=== PATIENT | male | born 1980 | race Caucasian/White ===

== ENCOUNTER 2016-08-09 20:00 | Day surgery (SDC) | payer OTHER ==
[~2016-08-09] VITALS: Ht 165.1 cm; Wt 78.5 kg
[2016-08-09] MEDS ORDERED: ONDANSETRON 4MG/2ML VIAL (J2405) As Ordered ONE (21:33)
[2016-08-09] MEDS ORDERED: MORPHINE 4 MG/ML 1ML SYRINGE As Ordered ONE (21:33)
[2016-08-09 21:57] LABS: BASO # 0.2 K/mm3 (0.0-0.2); BASO % 1.6 % (0.0-1.0); EOS # 0.4 K/mm3 (0.0-0.50); EOS % 2.6 % (0.0-3.0); LARGE UNSTAINED CELL # 0.2 K/mm3 (0.0-0.4); LARGE UNSTAINED CELL % 1.2 % (0.0-4.0); LYMPH # 1.9 K/mm3 (1.5-4.5); LYMPH % 12.8 % (24.0-44.0); MEAN CORPUSCULAR HEMOGLOBIN 30.6 pg (27.0-33.0); MEAN CORPUSCULAR HGB CONC 34.7 g/dl (32.0-36.5); MEAN CORPUSCULAR VOLUME 88.1 fl (80.0-96.0); MONO # 0.7 K/mm3 (0.0-0.8); MONO % 4.8 % (0.0-5.0); NEUTROPHILS # 10.7 K/mm3 (1.8-7.7); PLATELET COUNT, AUTOMATED 211 k/mm3 (150-450); RED CELL DISTRIBUTION WIDTH 13.1 % (11.5-14.5); WHITE BLOOD COUNT 13.8 K/mm3 (4.0-10.0)
[2016-08-09 22:25] LABS: ALBUMIN 4.3 GM/DL (3.2-5.2); ALBUMIN/GLOBULIN RATIO 1.54 (1.00-1.93); ALKALINE PHOSPHATASE 106 U/L (45-117); ALT/SGPT 50 U/L (12-78); ANION GAP 9 MEQ/L (8-16); AST/SGOT 19 U/L (15-37); BILIRUBIN,DIRECT 0.1 MG/DL (0.0-0.2); BILIRUBIN,TOTAL 0.4 MG/DL (0.2-1.0); BLOOD UREA NITROGEN 15 MG/DL (7-18); CARBON DIOXIDE LEVEL 28 MEQ/L (21-32); CHLORIDE LEVEL 104 MEQ/L (98-107); CREATININE FOR GFR 1.09 MG/DL (0.70-1.30); GLOMERULAR FILTRATION RATE > 60.0 (>60); GLUCOSE, FASTING 92 MG/DL (70-105); POTASSIUM SERUM 4.1 MEQ/L (3.5-5.1); SODIUM LEVEL 141 MEQ/L (136-145); TOTAL PROTEIN 7.1 GM/DL (6.4-8.2)
[2016-08-09] MEDS ORDERED: ISOVUE-370 76% 100ML VIAL (Q9967) As Ordered ONE (22:30)
[2016-08-10] VITALS (9 sets, daily range): BP systolic 116–128; BP diastolic 57–76
--- NOTE | 2016-08-10 00:50 | REPUSA ---
CLINICAL HISTORY: Abdominal pain. TECHNIQUE: Multiple axial, sagittal and coronal CT images were obtained through the abdomen and pelvi s after administration of intravenous contrast material. COMMENTS: Enlarged appendix measuring 1.3 cm. Impacted appendicolith in the base of the appendix. Thickening an d enhancement of the wall of the appendix with surrounding fat stranding. Fluid filled small bowels. The liver is mildly enlarged with decreased attenuation without mass or defect. There is no intra or extrahepatic biliary ductal dilatation. The spleen is normal. The gallbladder is within normal limits . The pancreas is of normal contour and attenuation characteristics. There is no evidence of adrenal mass. Both kidneys demonstrate prompt and equal nephrograms. The kidneys are normal in size, shape and conf iguration. There is no evidence of renal or ureteral mass. No renal or ureteral calculi are identifie d. There is no hydroureter or hydronephrosis. There is no bowel wall thickening. No evidence for small or large bowel obstruction. There is no evid ence of abdominal ascites or lymphadenopathy. There is no evidence of intrinsic or extrinsic bladder mass. There is no pelvic ascites or lymphadeno eusebia. Images of the lung bases show no evidence of pleural or parenchymal mass. There are no pleural effusi ons. The bony structures are free of lytic or blastic lesions. Multilevel degenerative changes are seen in volving the thoracolumbar spine. Scattered calcifications are seen involving the aorta and major bran ches compatible with atherosclerosis. IMPRESSION: Acute appendicitis. No perforation or abscess formation. Fluid filled small bowels, probably ileus. Moderate prostatomegaly. Prostatic calcifications. Mild diffuse thickening of the bladder. Thank you for your kind referral of this patient.
[2016-08-10] MEDS ORDERED: MORPHINE 4 MG/ML 1ML SYRINGE As Ordered ONE (00:51)
[2016-08-10] MEDS ORDERED: ZOSYN 3.375 GM VIAL (J2543) As Ordered ONE (00:57)
[2016-08-10] MEDS ORDERED: METOCLOPRAMIDE INJ 10MG/2ML VIAL (J2765) As Ordered ONE (00:57)
[2016-08-10] MEDS ORDERED: ASPI325T PO (01:15)
[2016-08-10] MEDS ORDERED: ATEN25TA PO (01:15)
[2016-08-10] MEDS ORDERED: TELM1TAB PO (01:15)
[2016-08-10] MEDS ORDERED: TEST200I14 IM (01:15)
--- NOTE | 2016-08-10 02:07 | EDDOCDS ---
Physician Documentation [facility] Name: Matheus Mac Age: 35 yrs Sex: Male : 1980 Arrival Date: 08/09/2016 Time: 20:00 Bed I6 / 28 Private MD: Paul Rojas Disposition: 08/10/16 00:57 Hospitalization ordered by Prasad Guadarrama for Inpatient Admission. Preliminary diagnosis is Acute appendicitis. - Bed requested for M PED. - Status is Inpatient Admission. ld5 - Condition is Stable. - Problem is new. - Symptoms are unchanged. Historical: - Allergies: Codeine Sulfate; - Home Meds: 1. testosterone every 2 weeks 2. telmisartan 40 mg oral tab 1 tab once daily 3. atenolol 25 mg Oral tab 1 tab once daily 4. aspirin 325 mg Oral tab 1 tab once daily - PMHx: Low Testosterone; Hypertension; abnormal heartbeat; - PSHx: Cardiac Ablation; - Social history: Smoking status: Patient states former smoker of tobacco. No barriers to communication noted, The patient speaks fluent Icelandic. - Family history: Not pertinent. - : The pt / caregiver states he / she is not on anticoagulants. Home medication list is obtained from the patient. - Exposure Risk Screening:: None identified. Vital Signs: 08/09 20:01 BP 148 / 85; Pulse 80; Resp 18; Temp 99.3(O); Pulse Ox 97% ; Weight 77.11 kg / 170 lbs; elp Height 5 ft. 5 in. (165.10 cm); Pain 6/10; 08/10 00:52 BP 155 / 75; Pulse 60; Resp 16; Temp 98.8(O); Pulse Ox 96% on R/A; Pain 5/10; ld5 02:04 BP 125 / 58; Pulse 65; Resp 16; Temp 98.7(O); Pulse Ox 95% on R/A; ld5 08/09 20:01 Body Mass Index 28.29 (77.11 kg, 165.10 cm) elp MDM: 08/09 21:26 Undress patient appropriately for examination ordered. ar2 21:26 IV Saline Lock ordered. ar2 21:26 NS 0.9% 1000 ml IV at bolus once ordered. ar2 21:26 morphine 4 mg IVP once ordered. ar2 21:26 Ondansetron 4 mg IVP once ordered. ar2 21:27 Basic Metabolic Profile Ordered. EDMS 21:27 CBC with Diff Ordered. EDMS 21:27 Liver Profile Ordered. EDMS 21:27 CT ABD & PELVIS: IV Contrast Only Ordered. EDMS 21:27 NOTHING BY MOUTH+DIET ordered. EDMS 21:29 UA Ordered. EDMS 21:59 Financial registration complete. zo 22:31 CBC with Diff Reviewed. ar2 22:31 Basic Metabolic Profile Reviewed. ar2 22:31 Liver Profile Reviewed. ar2 22:31 UA Reviewed. ar2 23:37 [facility] [place] Agreement was scanned into Quench and attached to record. zo 07 00:44 morphine 4 mg IVP once ordered. ar2 00:53 Piperacillin-Tazobactam 3.375 grams IVPB once over 30 mins; dilute in 50mL of NS or D5W ar2 ordered. 00:56 Metoclopramide 10 mg IV at 40 mg/hr once over 15 mins ordered. ar2 00:57 BED REQUEST+ADM ordered. EDMS 01:17 Admission Orders was scanned into Quench and attached to record. ml3 Administered Medications: 08/09 21:52 Drug: NS 0.9% 1000 ml [sodium chloride 0.9 % intravenous solution] Route: IV; Rate: ms18 bolus; Site: right antecubital; 08/10 01:27 Follow up: IV Status: Completed infusion; IV Intake: 1000ml ld5 08/09 21:52 Drug: morphine 4 mg [morphine 4 mg/mL intravenous cartridge (1 mL)] Route: IVP; Site: ms18 right antecubital; 21:52 Drug: Ondansetron 4 mg [ondansetron HCl 2 mg/mL intravenous solution (2 mL)] Route: ms18 IVP; Site: right antecubital; 08/10 01:14 Drug: Metoclopramide 10 mg [metoclopramide 5 mg/mL injection solution] Route: IV; Rate: ld5 40 mg/hr; Infused Over: 15 mins; Site: right antecubital; 01:59 Follow up: IV Status: Completed infusion ld5 01:52 Drug: morphine 4 mg [morphine 4 mg/mL intravenous cartridge (1 mL)] Route: IVP; Site: ld5 right antecubital; 01:52 Drug: Piperacillin-Tazobactam 3.375 grams [piperacillin-tazobactam 3.375 gram ld5 intravenous solution] Route: IVPB; Infused Over: 30 mins; Site: right antecubital; 01:58 Follow up: IV Status: Infusion continued upon admit ld5 Signatures: Dispatcher MedHost EDElba Layton, RN RN [facility] Bridger Goetzzabeth, Script Manager Unit ml3 Sol Rosario Aaron, PA-C PADerrick ar2 Yokasta Mckeon RN RN ld5 Farideh Clifford RN RN ms18 The chart was reviewed and I authenticate all verbal orders and agree with the evaluation and treatment provided.Attachments: 08/09 23:37 [facility] Payment Agreement zo 08/10 01:17 Admission Orders ml3 MTDD
--- NOTE | 2016-08-10 02:07 | EDDOCDS ---
Nurse's Notes [facility] Name: Matheus Mac Age: 35 yrs Sex: Male : 1980 Arrival Date: 08/09/2016 Time: 20:00 Bed I6 / 28 Private MD: Paul Rojas Diagnosis: Acute appendicitis Presentation: 08/09 20:03 Presenting complaint: Patient states: Abdominal pain since this am--went to urgent care [facility] in [place] and was sent here to R/O AP. Risk factors: the patient reports not having a history of previous torsion. Adult Sepsis Screening: The patient does not have new or worsening altered mentation. Patient's respiratory rate is less than 22. Systolic blood pressure is greater than 100. Patient has a qSOFA score of 0- Negative Sepsis Screen. Suicide/Homicide risk assessment- the patient denies having any suicidal and/or homicidal ideations and does not present with any other emotional, behavioral or mental health complaints. Status: Patient is not a financial services auditor or dependent. Transition of care: patient was not received from another setting of care. 20:03 Acuity: JOCELYNE Level 3 [facility] 20:03 Method Of Arrival: Walkin/Carried/Asstd [facility] Triage Assessment: 20:06 General: Appears uncomfortable, Behavior is cooperative. Pain: Location: epigastric mcp area and right lower quadrant Pain currently is 7 out of 10 on a pain scale. HIV screening NA for this visit Offered previously. Neurological: No deficits noted. Respiratory: Airway is patent Respiratory effort is even, unlabored. GI: Reports diarrhea, lower abdominal pain, nausea. Derm: Skin is pink, warm & dry. Historical: - Allergies: Codeine Sulfate; - Home Meds: 1. testosterone every 2 weeks 2. telmisartan 40 mg oral tab 1 tab once daily 3. atenolol 25 mg Oral tab 1 tab once daily 4. aspirin 325 mg Oral tab 1 tab once daily - PMHx: Low Testosterone; Hypertension; abnormal heartbeat; - PSHx: Cardiac Ablation; - Social history: Smoking status: Patient states former smoker of tobacco. No barriers to communication noted, The patient speaks fluent Swedish. - Family history: Not pertinent. - : The pt / caregiver states he / she is not on anticoagulants. Home medication list is obtained from the patient. - Exposure Risk Screening:: None identified. Screenin:45 Screening information is obtained from the patient. Fall risk: No risks identified. ms18 Assistance ADL's: requires no assistance with activities of daily living. Abuse/DV Screen: The patient / caregiver reports he/she is: not in a situation that causes fear, pain or injury. Nutritional screening: No deficits noted. home support is adequate. 08/10 01:58 Advance Directives: There is no active DNR order. ld5 Assessment: 08/09 21:45 General: Appears in no apparent distress, uncomfortable, Behavior is appropriate for ms18 age, cooperative. Pain: Location: right lower quadrant and left lower quadrant Pain currently is 3 out of 10 on a pain scale. Neurological: No deficits noted. Respiratory: Airway is patent Respiratory effort is even, unlabored, Respiratory pattern is regular, symmetrical. GI: Abdomen is flat, Bowel sounds present X 4 quads. Abd is soft X 4 quads Reports diarrhea, lower abdominal pain, nausea, vomiting. Derm: Skin is pink, warm & dry. 22:55 General: Pt returned from CT. Tolerated well. Reports decreased pain but bloating ld5 remains to abdomen. Will continue to monitor. 23:55 General: Awaiting CT results. Denies any needs. Will continue to monitor. ld5 08/10 00:52 General: In to medicate pt with pain medication. Spoke with provider regarding pt's ld5 heart rate. Provider ok with continuing with Morphine administration. Pt reports increasing nausea. Provider made aware. 01:00 General: Pain medication held while Reglan infuses. Pt aware that pain medication was ld5 being held due to chance of increasing nausea. Will continue to monitor. 01:52 General: Pt medicated per orders for pain and antibiotic started per orders. Pt laying ld5 quietly in bed. SO at bedside. Will continue to monitor. Vital Signs: 08/09 20:01 BP 148 / 85; Pulse 80; Resp 18; Temp 99.3(O); Pulse Ox 97% ; Weight 77.11 kg; Height 5 elp ft. 5 in. (165.10 cm); Pain 6/10; 08/10 00:52 BP 155 / 75; Pulse 60; Resp 16; Temp 98.8(O); Pulse Ox 96% on R/A; Pain 5/10; ld5 02:04 BP 125 / 58; Pulse 65; Resp 16; Temp 98.7(O); Pulse Ox 95% on R/A; ld5 08/09 20:01 Body Mass Index 28.29 (77.11 kg, 165.10 cm) elp Vitals: 08/09 20:01 Log In Time: August 09, 2016 at 20:00. elp ED Course: 20:00 Patient visited by Missy Carvajal PCA. elp 20:00 Paul Rojas is Private Physician. elp 20:00 Patient moved to Waiting elp 20:01 Patient visited by Missy Carvajal PCA. elp 20:01 Patient moved to Pre RCE elp 20:04 Triage Initiated mcp 20:07 Patient visited by Elba Salguero RN. mcp 20:46 Patient moved to Triage 1 cz 20:47 Patient visited by Irene Howard PCA. jb5 20:56 [facility] ar2 20:56 Ramírez Stone DO is Attending Physician. ar2 21:21 Patient visited by Oren Hopkins PA-C. ar2 21:25 Patient moved to I jb5 21:31 UA Sent. jb5 21:45 The patient / caregiver is instructed regarding the plan of care and ED course. ms18 Accompanied by Significant Other, Patient has correct armband on for positive identification. Placed in gown. Bed in low position. Call light in reach. Property :Personal belongings accompany Pt. 21:50 Patient visited by Rochelle Alvarado LPN. cp1 21:50 Basic Metabolic Profile Sent. cp1 21:50 CBC with Diff Sent. cp1 21:50 Liver Profile Sent. cp1 22:37 Patient visited by Farideh Clifford RN. ms18 22:[address] ms18 22:46 Patient moved to I6 ms18 22:47 Inserted saline lock: 20 gauge in right antecubital area and blood collected. The ms18 patient tolerated the procedure well. 22:58 Patient visited by Yokasta Mckeon RN. ld5 23:37 [facility] Payment Agreement was scanned into Synup and attached to record. zo 08/10 00:15 Patient visited by Rochelle Alvarado LPN. cp1 00:44 Patient visited by Rochelle Alvarado LPN. cp1 00:56 Prasad Guadarrama MD is Hospitalizing Provider. ar2 00:59 CT ABD & PELVIS: IV Contrast Only Returned. EDMS 01:17 Admission Orders was scanned into Synup and attached to record. ml3 01:28 Patient visited by Yokasta Mckeon RN. ld5 01:53 Patient visited by Yokasta Mckeon RN. ld5 02:05 No procedures done that require assistance. ld5 02:07 Patient visited by Yokasta Mckeon RN. ld5 Administered Medications: 08/09 21:52 Drug: NS 0.9% 1000 ml [sodium chloride 0.9 % intravenous solution] Route: IV; Rate: ms18 bolus; Site: right antecubital; 08/10 01:27 Follow up: IV Status: Completed infusion; IV Intake: 1000ml ld5 08/09 21:52 Drug: morphine 4 mg [morphine 4 mg/mL intravenous cartridge (1 mL)] Route: IVP; Site: ms18 right antecubital; 21:52 Drug: Ondansetron 4 mg [ondansetron HCl 2 mg/mL intravenous solution (2 mL)] Route: ms18 IVP; Site: right antecubital; 08/10 01:14 Drug: Metoclopramide 10 mg [metoclopramide 5 mg/mL injection solution] Route: IV; Rate: ld5 40 mg/hr; Infused Over: 15 mins; Site: right antecubital; 01:59 Follow up: IV Status: Completed infusion ld5 01:52 Drug: morphine 4 mg [morphine 4 mg/mL intravenous cartridge (1 mL)] Route: IVP; Site: ld5 right antecubital; 01:52 Drug: Piperacillin-Tazobactam 3.375 grams [piperacillin-tazobactam 3.375 gram ld5 intravenous solution] Route: IVPB; Infused Over: 30 mins; Site: right antecubital; 01:58 Follow up: IV Status: Infusion continued upon admit ld5 Intake: 01:27 IV: 1000.00ml; Total: 1000.00ml. ld5 Order Results: Lab Order: Basic Metabolic Profile; SPEC'M 08/09/16 21:40 Test: GLUCOSE, FASTING; Value: 92; Range: 70-105; Units: MG/DL; Status: F Test: BLOOD UREA NITROGEN; Value: 15; Range: 7-18; Units: MG/DL; Status: F Test: CREATININE FOR GFR; Value: 1.09; Range: 0.70-1.30; Units: MG/DL; Status: F Test: GLOMERULAR FILTRATION RATE; Value: > 60.0; Range: >60; Status: F Test: SODIUM LEVEL; Value: 141; Range: 136-145; Units: MEQ/L; Status: F Test: POTASSIUM SERUM; Value: 4.1; Range: 3.5-5.1; Units: MEQ/L; Status: F Test: CHLORIDE LEVEL; Value: 104; Range: 98-107; Units: MEQ/L; Status: F Test: CARBON DIOXIDE LEVEL; Value: 28; Range: 21-32; Units: MEQ/L; Status: F Test: ANION GAP; Value: 9; Range: 8-16; Units: MEQ/L; Status: F Test: CALCIUM LEVEL; Value: 9.0; Range: 8.5-10.1; Units: MG/DL; Status: F Test Note: ; Units are mL/min/1.73 m2 Chronic Kidney Disease Staging per NKF: Stage I & II GFR >=60 Normal to Mildly Decreased Stage III GFR 30-59 Moderately Decreased Stage IV GFR 15-29 Severely Decreased Stage V GFR <15 Very Little GFR Left ESRD GFR <15 on MANAGER MSW Lab Order: CBC with Diff; SPEC'M 08/09/16 21:40 Test: WHITE BLOOD COUNT; Value: 13.8; Range: 4.0-10.0; Abnormal: Above high normal; Units: K/mm3; Status: F Test: RED BLOOD COUNT; Value: 5.38; Range: 4.30-6.10; Units: M/mm3; Status: F Test: HEMOGLOBIN; Value: 16.5; Range: 14.0-18.0; Units: g/dl; Status: F Test: HEMATOCRIT; Value: 47.5; Range: 42.0-52.0; Units: %; Status: F Test: MEAN CORPUSCULAR VOLUME; Value: 88.1; Range: 80.0-96.0; Units: fl; Status: F Test: MEAN CORPUSCULAR HEMOGLOBIN; Value: 30.6; Range: 27.0-33.0; Units: pg; Status: F Test: MEAN CORPUSCULAR HGB CONC; Value: 34.7; Range: 32.0-36.5; Units: g/dl; Status: F Test: RED CELL DISTRIBUTION WIDTH; Value: 13.1; Range: 11.5-14.5; Units: %; Status: F Test: PLATELET COUNT, AUTOMATED; Value: 211; Range: 150-450; Units: k/mm3; Status: F Test: NEUTROPHILS %; Value: 77.0; Range: 36.0-66.0; Abnormal: Above high normal; Units: %; Status: F Test: LYMPH %; Value: 12.8; Range: 24.0-44.0; Abnormal: Below low normal; Units: %; Status: F Test: MONO %; Value: 4.8; Range: 0.0-5.0; Units: %; Status: F Test: EOS %; Value: 2.6; Range: 0.0-3.0; Units: %; Status: F Test: BASO %; Value: 1.6; Range: 0.0-1.0; Abnormal: Above high normal; Units: %; Status: F Test: LARGE UNSTAINED CELL %; Value: 1.2; Range: 0.0-4.0; Units: %; Status: F Test: NEUTROPHILS #; Value: 10.7; Range: 1.8-7.7; Abnormal: Above high normal; Units: K/mm3; Status: F Test: LYMPH #; Value: 1.9; Range: 1.5-4.5; Units: K/mm3; Status: F Test: MONO #; Value: 0.7; Range: 0.0-0.8; Units: K/mm3; Status: F Test: EOS #; Value: 0.4; Range: 0.0-0.50; Units: K/mm3; Status: F Test: BASO #; Value: 0.2; Range: 0.0-0.2; Units: K/mm3; Status: F Test: LARGE UNSTAINED CELL #; Value: 0.2; Range: 0.0-0.4; Units: K/mm3; Status: F Lab Order: Liver Profile; [facility]' 08/09/16 21:40 Test: AST/SGOT; Value: 19; Range: 15-37; Units: U/L; Status: F Test: ALT/SGPT; Value: 50; Range: 12-78; Units: U/L; Status: F Test: ALKALINE PHOSPHATASE; Value: 106; Range: 45-117; Units: U/L; Status: F Test: BILIRUBIN,TOTAL; Value: 0.4; Range: 0.2-1.0; Units: MG/DL; Status: F Test: BILIRUBIN,DIRECT; Value: 0.1; Range: 0.0-0.2; Units: MG/DL; Status: F Test: TOTAL PROTEIN; Value: 7.1; Range: 6.4-8.2; Units: GM/DL; Status: F Test: ALBUMIN; Value: 4.3; Range: 3.2-5.2; Units: GM/DL; Status: F Test: ALBUMIN/GLOBULIN RATIO; Value: 1.54; Range: 1.00-1.93; Status: F Lab Order: ; SPEC'M 08/09/16 21:30 Test: APPEARANCE, URINE; Value: CLEAR; Range: CLEAR; Status: F Test: COLOR, URINE; Value: YELLOW; Range: YELLOW; Status: F Test: PH,URINE; Value: 5.0; Range: 5.0-9.0; Units: UNITS; Status: F Test: SPECIFIC GRAVITY URINE AUTO; Value: 1.014; Range: 1.002-1.035; Status: F Test: PROTEIN, URINE AUTO; Value: NEGATIVE; Range: NEGATIVE; Units: mg/dL; Status: F Test: GLUCOSE, URINE (UA) AUTO; Value: NEGATIVE; Range: NEGATIVE; Units: mg/dL; Status: F Test: KETONE, URINE AUTO; Value: NEGATIVE; Range: NEGATIVE; Units: mg/dL; Status: F Test: UROBILINOGEN, URINE AUTO; Value: 0.2; Range: 0.0-2.0; Units: mg/dL; Status: F Test: BILIRUBIN, URINE AUTO; Value: NEGATIVE; Range: NEGATIVE; Status: F Test: NITRITE, URINE AUTO; Value: NEGATIVE; Range: NEGATIVE; Status: F Test: LEUKOCYTE ESTERASE, URINE AUTO; Value: NEGATIVE; Range: NEGATIVE; Status: F Test: BLOOD, URINE BLOOD; Value: NEGATIVE; Range: NEGATIVE; Status: F Test: WBC, URINE AUTO; Value: 0; Range: 0-3; Units: /HPF; Status: F Test: RBC, URINE AUTO; Value: 0; Range: 0-3; Units: /HPF; Status: F Test: BACTERIA, URINE AUTO; Value: NEGATIVE; Range: NEGATIVE; Status: F Test: SQUAMOUS EPITHELIAL CELL UR AU; Value: 0; Range: 0-6; Units: /HPF; Status: F Test: MUCUS, URINE; Value: SMALL; Range: NEGATIVE; Status: F Test: HYALINE CAST, URINE AUTO; Value: 0; Range: 0-1; Units: /LPF; Status: F Radiology Order: CT ABD & PELVIS: IV Contrast Only Test: CT ABD & PELVIS: IV Contrast Only REASON FOR EXAMINATION: Appendicitis; ; CLINICAL HISTORY: Abdominal pain.; TECHNIQUE: Multiple axial, sagittal and coronal CT images were obtained through the abdomen and pelvi; s after administration of intravenous contrast material.; COMMENTS:; Enlarged appendix measuring 1.3 cm. Impacted appendicolith in the base of the appendix. Thickening an; d enhancement of the wall of the appendix with surrounding fat stranding.; Fluid filled small bowels.; The liver is mildly enlarged with decreased attenuation without mass or defect. There is no intra or; extrahepatic biliary ductal dilatation. The spleen is normal. The gallbladder is within normal limits; . The pancreas is of normal contour and attenuation characteristics. There is no evidence of adrenal; mass.; Both kidneys demonstrate prompt and equal nephrograms. The kidneys are normal in size, shape and conf; iguration. There is no evidence of renal or ureteral mass. No renal or ureteral calculi are identifie; d. There is no hydroureter or hydronephrosis.; There is no bowel wall thickening. No evidence for small or large bowel obstruction. There is no evid; ence of abdominal ascites or lymphadenopathy.; There is no evidence of intrinsic or extrinsic bladder mass. There is no pelvic ascites or lymphadeno; eusebia.; Images of the lung bases show no evidence of pleural or parenchymal mass. There are no pleural effusi; ons.; The bony structures are free of lytic or blastic lesions. Multilevel degenerative changes are seen in; volving the thoracolumbar spine. Scattered calcifications are seen involving the aorta and major bran; ches compatible with atherosclerosis.; IMPRESSION:; Acute appendicitis.; No perforation or abscess formation.; Fluid filled small bowels, probably ileus.; Moderate prostatomegaly.; Prostatic calcifications.; Mild diffuse thickening of the bladder.; Thank you for your kind referral of this patient.; ; Outcome: 08/09 22:59 CT Study completed. ms18 08/10 00:57 Decision to Hospitalize by Provider. ar2 02:05 Discharge Assessment: Patient awake, alert and oriented x 3. No cognitive and/or ld5 functional deficits noted. Patient verbalized understanding of disposition instructions. patient administered narcotics - yes. Patient was admitted to the hospital or transferred to another facility. The following High Risk Discharge criteria are identified: None. Admitted to Pediatrics accompanied by tech, family with patient, via stretcher, with chart. Condition: stable. Admission hand-off: Report called to Blanca on peds. 02:07 Patient left the ED. ld5 Signatures: Dispatcher [employer] EDMS Elba Salguero RN RN mcp Zecher, Calvin, RN RN Tommy Goetz, Local Sales Associate Unit ml3 Irene Howard, CARDIOLOGIST CARDIOLOGIST jb5 Sol Rosario Aaron, PA-C PADerrick ar2 Rochelle Alvarado,MANAGER BEVERAGE MANAGER BEVERAGE cp1 Yokasta Mckeon RN RN ld5 Missy Carvajal, CARDIOLOGIST CARDIOLOGIST bridgerp Farideh Clifford RN RN ms18 Corrections: (The following items were deleted from the chart) 08/09 22:56 21:52 NS 0.9% 1000 ml IV at bolus in left antecubital ms18 ms18 22:56 21:52 morphine 4 mg IVP in left antecubital ms18 ms18 22:57 21:52 Ondansetron 4 mg IVP in left antecubital ms18 ms18 MTDD
[2016-08-10] MEDS ORDERED: ONDANSETRON 4MG/2ML VIAL (J2405) IV PRN ×2 (03:00→11:45)
[2016-08-10] MEDS ORDERED: MORPHINE 4 MG/ML 1ML SYRINGE IV PRN (03:00)
[2016-08-10] MEDS ORDERED: MORPHINE 2 MG/ML 1ML SYRINGE IV PRN (03:00)
[2016-08-10] MEDS: LR 1,000 ML IV SCH ×2 (03:17→09:40)
[2016-08-10] MEDS ORDERED: PIPERACILLIN/TAZOBACTAM SOD 3.375 GM in D5W MINI-BAG PLUS 50 ML IV SCH ×2 (08:00→14:00)
[2016-08-10] MEDS ORDERED: PIPERACILLIN/TAZOBACTAM SOD 3.375 GM in D5W 50 ML IV SCH (08:00)
[2016-08-10] MEDS ORDERED: BUPIVACAINE HCL 0.25% 30 ML VIAL As Ordered ONE (08:12)
[2016-08-10] MEDS ORDERED: BUPIVACAINE/EPIN 0.25% 30 ML VIAL As Ordered ONE (08:16)
[2016-08-10] MEDS ORDERED: ATENOLOL 25 MG TAB As Ordered ONE (09:12)
[2016-08-10] MEDS ORDERED: fentaNYL 250 MCG/5 ML INJECTION (J3010) As Ordered ONE (09:41)
[2016-08-10] MEDS ORDERED: MIDAZOLAM INJ 2 MG/2 ML VIAL (J2250) As Ordered ONE (09:41)
[2016-08-10] MEDS ORDERED: ROCURONIUM BROMIDE 50 MG/5 ML VIAL As Ordered ONE (09:41)
[2016-08-10] MEDS ORDERED: LIDOCAINE 2% INJ 100 MG/5 ML SDV (FOR ANES.) As Ordered ONE (09:41)
[2016-08-10] MEDS ORDERED: PROPOFOL 200 MG/20 ML VIAL As Ordered ONE (09:41)
[2016-08-10] MEDS ORDERED: ATENOLOL 25 MG TAB PO ONE (09:45)
[2016-08-10] MEDS ORDERED: KETOROLAC 60 MG/2 ML VIAL (J1885) As Ordered ONE (10:02)
[2016-08-10] MEDS ORDERED: NEOSTIGMINE 1MG/ML 5 ML SYRINGE (J2710) As Ordered ONE (10:02)
[2016-08-10] MEDS ORDERED: ONDANSETRON 4MG/2ML VIAL (J2405) As Ordered ONE (10:02)
[2016-08-10] MEDS ORDERED: GLYCOPYRROLATE INJ 0.2 MG/ML 2 ML VIAL As Ordered ONE (10:02)
--- NOTE | 2016-08-10 10:06 | HPE ---
DATE OF ADMISSION: 08/10/2016 CHIEF COMPLAINT: Acute appendicitis. BRIEF HISTORY OF PRESENT ILLNESS: The patient has had about a 36-hour history of not feeling well. It essentially started with some generalized abdominal discomfort the following morning 24 hours ago. The patient developed abdominal pain on the right side with some constipation feelings. He had a couple bowel movements during the day and noticed that this pain was still there and was slightly progressive in nature. He has not had any fevers or chills. He came to the emergency room with increasing right lower quadrant pain and had workup in the emergency room, which included showing an elevated white count of 13.8 and underwent a CAT scan which showed evidence of acute appendicitis. I have reviewed the CAT scan. Indeed, the appendix looked slightly enlarged and some minimal periappendiceal inflammation consistent with acute early appendicitis. The patient has not had any diarrhea. No nausea. No vomiting. No fevers. No chills. No blood per rectum. No family or personal history of ulcerative colitis or Crohn's disease. No other gastrointestinal (GI) complaints. No other individual with GI distress or a GI complaints at this time. PAST MEDICAL HISTORY: Significant for: 1. History of cardiac ablation. 2. History of arrhythmia. 3. History of low testosterone. 4. History of hypertension. MEDICATIONS: Include: - testosterone - telmisartan - atenolol - aspirin PHYSICAL EXAMINATION: Reveals a 35-year-old male who looks older than stated age. HEENT: Unremarkable. NECK: Supple without adenopathy. LUNGS: Clear to auscultation without crackles, wheezes or rhonchi. HEART: Regular, without murmur, without irregular beats. ABDOMEN: Softly distended, mildly tender to palpation in the right lower quadrant, with some mild guarding, without significant rebound. No hernias appreciated. No masses are appreciated. EXTREMITIES: Warm, well-perfused. IMPRESSION AND PLAN: The patient has CT evidence of appendicitis, elevated white count and tenderness in the right lower quadrant, all consistent with acute appendicitis. We will plan on a laparoscopic appendectomy. We discussed the risks as well as benefits associated with operative intervention, those including but not limited to, infection, bleeding, damage to surrounding structures and possible need for open operative intervention. The patient would like to proceed with laparoscopic appendectomy. He will be given intravenous (IV) fluids, IV antibiotics, kept nothing by mouth.
[2016-08-10] MEDS ORDERED: NORCO, ANEXSIA 5/325MG TABLET (HYDROcodone/ACETAMINOPHEN) PO PRN ×2 (10:45)
[2016-08-10] MEDS ORDERED: BUPIVACAINE/EPIN 0.25% 30 ML VIAL XX ONE (10:50)
--- NOTE | 2016-08-10 10:54 | RO ---
DATE OF PROCEDURE: 08/10/2016 PREOPERATIVE DIAGNOSIS: Acute appendicitis. POSTOPERATIVE DIAGNOSIS: Acute appendicitis. PROCEDURE: Laparoscopic appendectomy. SURGEON: Dr. Prasad Guadarrama ICICLE MACHINE OPERATOR: ANESTHESIA: General endotracheal anesthesia. ESTIMATED BLOOD LOSS: Minimal. FLUIDS: Crystalloid. BRIEF PROCEDURE SUMMARY: The patient was brought to the operating room and was given general anesthesia. After adequate anesthesia and preoperative antibiotics were given, the patient was prepped and draped in the usual sterile fashion. Next, a supraumbilical incision was made with skin knife. Blunt dissection was carried down to fascia. Fascia was grasped with Nurys clamps, elevated and a Veress needle placed into the abdominal cavity and insufflated to 15 mm pressure. A dilating 10 mm trocar was placed at the umbilicus under direct visualization. A suprapubic and left lower quadrant 5 mm trocars were placed. Next, the appendix was seen on the pelvic sidewall up against the iliac vessels. The mesentery was relatively adherent to this. Thus, this injected distal tip was able to be mobilized with some minimal blunt dissection, but the mesentery then was taken along the appendix itself with the harmonic scalpel. This was slightly edematous and friable and was oozing at the site. The dissection continued all the way to the base of the appendix where it met up with the cecum. There was some oozing as well on the base of the cecum. After irrigating this copiously, this had generalized ooze, most likely secondary to his aspirin use that he had been on. This was enough that it was not stopping with minimal pressure in the area. Thus, some Tisseel was placed over this area and provided good hemostasis. There was no oozing further from this mesentery. The pelvis was copiously irrigated until clear and the right lower quadrant was copiously irrigated until clear, prior to placing this Tisseel. All trocars were removed under direct visualization. #0 Vicryl was used to close the fascia at the umbilicus and all incisions were closed with #4-0 Vicryl. Steri-Strips and a dry sterile dressing was applied. The patient was awakened, extubated and brought to recovery room awake, alert, and hemodynamically stable. Sponge and needle counts were correct times two.
[2016-08-10] MEDS ORDERED: LR 1,000 ML IV SCH (11:45)
[2016-08-10] MEDS ORDERED: PERCOCET 5MG/325MG TAB PO PRN (11:45)
[2016-08-10] MEDS ORDERED: fentaNYL 100 MCG/2 ML INJECTION (J3010) IV PRN (11:45)
[2016-08-10] MEDS ORDERED: KETOROLAC 30 MG/ML VIAL (J1885) IV SCH (16:00)
[2016-08-10] MEDS ORDERED: NORC5TAB PO (17:14)
--- NOTE | 2016-08-13 10:24 | EDDOCDS ---
Nurse's Notes [facility] Name: Matheus Mac Age: 35 yrs Sex: Male : 1980 Arrival Date: 08/09/2016 Time: 20:00 Bed I6 / 28 Private MD: Paul Rojas Diagnosis: Acute appendicitis Presentation: 08/09 20:03 Presenting complaint: Patient states: Abdominal pain since this am--went to urgent care [facility] in [place] and was sent here to R/O AP. Risk factors: the patient reports not having a history of previous torsion. Adult Sepsis Screening: The patient does not have new or worsening altered mentation. Patient's respiratory rate is less than 22. Systolic blood pressure is greater than 100. Patient has a qSOFA score of 0- Negative Sepsis Screen. Suicide/Homicide risk assessment- the patient denies having any suicidal and/or homicidal ideations and does not present with any other emotional, behavioral or mental health complaints. Status: Patient is not a creative services coordinator or dependent. Transition of care: patient was not received from another setting of care. 20:03 Acuity: JOCELYNE Level 3 [facility] 20:03 Method Of Arrival: Walkin/Carried/[facility]std [facility] Triage Assessment: 20:06 General: Appears uncomfortable, Behavior is cooperative. Pain: Location: epigastric mcp area and right lower quadrant Pain currently is 7 out of 10 on a pain scale. HIV screening NA for this visit Offered previously. Neurological: No deficits noted. Respiratory: Airway is patent Respiratory effort is even, unlabored. GI: Reports diarrhea, lower abdominal pain, nausea. Derm: Skin is pink, warm & dry. Historical: - Allergies: Codeine Sulfate; - Home Meds: 1. testosterone every 2 weeks 2. telmisartan 40 mg oral tab 1 tab once daily 3. atenolol 25 mg Oral tab 1 tab once daily 4. aspirin 325 mg Oral tab 1 tab once daily - PMHx: Low Testosterone; Hypertension; abnormal heartbeat; - PSHx: Cardiac Ablation; - Social history: Smoking status: Patient states former smoker of tobacco. No barriers to communication noted, The patient speaks fluent Khmer. - Family history: Not pertinent. - : The pt / caregiver states he / she is not on anticoagulants. Home medication list is obtained from the patient. - Exposure Risk Screening:: None identified. Screenin:45 Screening information is obtained from the patient. Fall risk: No risks identified. ms18 Assistance ADL's: requires no assistance with activities of daily living. Abuse/DV Screen: The patient / caregiver reports he/she is: not in a situation that causes fear, pain or injury. Nutritional screening: No deficits noted. home support is adequate. 08/10 01:58 Advance Directives: There is no active DNR order. ld5 Assessment: 08/09 21:45 General: Appears in no apparent distress, uncomfortable, Behavior is appropriate for ms18 age, cooperative. Pain: Location: right lower quadrant and left lower quadrant Pain currently is 3 out of 10 on a pain scale. Neurological: No deficits noted. Respiratory: Airway is patent Respiratory effort is even, unlabored, Respiratory pattern is regular, symmetrical. GI: Abdomen is flat, Bowel sounds present X 4 quads. Abd is soft X 4 quads Reports diarrhea, lower abdominal pain, nausea, vomiting. Derm: Skin is pink, warm & dry. 22:55 General: Pt returned from CT. Tolerated well. Reports decreased pain but bloating ld5 remains to abdomen. Will continue to monitor. 23:55 General: Awaiting CT results. Denies any needs. Will continue to monitor. ld5 08/10 00:52 General: In to medicate pt with pain medication. Spoke with provider regarding pt's ld5 heart rate. Provider ok with continuing with Morphine administration. Pt reports increasing nausea. Provider made aware. 01:00 General: Pain medication held while Reglan infuses. Pt aware that pain medication was ld5 being held due to chance of increasing nausea. Will continue to monitor. 01:52 General: Pt medicated per orders for pain and antibiotic started per orders. Pt laying ld5 quietly in bed. SO at bedside. Will continue to monitor. Vital Signs: 08/09 20:01 BP 148 / 85; Pulse 80; Resp 18; Temp 99.3(O); Pulse Ox 97% ; Weight 77.11 kg; Height 5 elp ft. 5 in. (165.10 cm); Pain 6/10; 08/10 00:52 BP 155 / 75; Pulse 60; Resp 16; Temp 98.8(O); Pulse Ox 96% on R/A; Pain 5/10; ld5 02:04 BP 125 / 58; Pulse 65; Resp 16; Temp 98.7(O); Pulse Ox 95% on R/A; ld5 08/09 20:01 Body Mass Index 28.29 (77.11 kg, 165.10 cm) elp Vitals: 08/09 20:01 Log In Time: August 09, 2016 at 20:00. elp ED Course: 20:00 Patient visited by Missy Carvajal PCA. elp 20:00 Paul Rojsa is Private Physician. elp 20:00 Patient moved to Waiting elp 20:01 Patient visited by Missy Carvajal PCA. elp 20:01 Patient moved to Pre RCE elp 20:04 Triage Initiated mcp 20:07 Patient visited by Elba Salguero RN. mcp 20:46 Patient moved to Triage 1 cz 20:47 Patient visited by Irene Howard PCA. jb5 20:56 [facility] Hopkins [facility]-C [facility]. ar2 20:56 Ramírez Stone DO is Attending Physician. ar2 21:21 Patient visited by Oren Hopkins PA-C. ar2 21:25 Patient moved to I jb5 21:31 UA Sent. jb5 21:45 The patient / caregiver is instructed regarding the plan of care and ED course. ms18 Accompanied by Significant Other, Patient has correct armband on for positive identification. Placed in gown. Bed in low position. Call light in reach. Property :Personal belongings accompany Pt. 21:50 Patient visited by Rochelle Alvarado LPN. cp1 21:50 Basic Metabolic Profile Sent. cp1 21:50 CBC with Diff Sent. cp1 21:50 Liver Profile Sent. cp1 22:37 Patient visited by Farideh Clifford RN. ms18 22:[address] ms18 22:46 Patient moved to I6 ms18 22:47 Inserted saline lock: 20 gauge in right antecubital area and blood collected. The ms18 patient tolerated the procedure well. 22:58 Patient visited by Yokasta Mckeon RN. ld5 23:37 [facility] Payment Agreement was scanned into [employer] and attached to record. zo 08/10 00:15 Patient visited by Rochelle Alvarado LPN. cp1 00:44 Patient visited by Rochelle Alvarado LPN. cp1 00:56 Prasad Guadarrama MD is Hospitalizing Provider. ar2 00:59 CT ABD & PELVIS: IV Contrast Only Returned. EDMS 01:17 Admission Orders was scanned into [employer] and attached to record. ml3 01:28 Patient visited by Yokasta Mckeon,JHONY. ld5 01:53 Patient visited by Yokasta Mckeon,JHONY. ld5 02:05 No procedures done that require assistance. ld5 02:07 Patient visited by Yokasta Mckeon RN. ld5 09:50 T-Sheet-- Draft Copy was scanned into [employer] and attached to record. gb 09:50 Radiology Report was scanned into [employer] and attached to record. gb Administered Medications: 08/09 21:52 Drug: NS 0.9% 1000 ml [sodium chloride 0.9 % intravenous solution] Route: IV; Rate: ms18 bolus; Site: right antecubital; 08/10 01:27 Follow up: IV Status: Completed infusion; IV Intake: 1000ml ld5 08/09 21:52 Drug: morphine 4 mg [morphine 4 mg/mL intravenous cartridge (1 mL)] Route: IVP; Site: ms18 right antecubital; 21:52 Drug: Ondansetron 4 mg [ondansetron HCl 2 mg/mL intravenous solution (2 mL)] Route: ms18 IVP; Site: right antecubital; 08/10 01:14 Drug: Metoclopramide 10 mg [metoclopramide 5 mg/mL injection solution] Route: IV; Rate: ld5 40 mg/hr; Infused Over: 15 mins; Site: right antecubital; 01:59 Follow up: IV Status: Completed infusion ld5 01:52 Drug: morphine 4 mg [morphine 4 mg/mL intravenous cartridge (1 mL)] Route: IVP; Site: ld5 right antecubital; 01:52 Drug: Piperacillin-Tazobactam 3.375 grams [piperacillin-tazobactam 3.375 gram ld5 intravenous solution] Route: IVPB; Infused Over: 30 mins; Site: right antecubital; 01:58 Follow up: IV Status: Infusion continued upon admit ld5 Intake: 01:27 IV: 1000.00ml; Total: 1000.00ml. ld5 Order Results: Lab Order: Basic Metabolic Profile; SPEC'M 08/09/16 21:40 Test: GLUCOSE, FASTING; Value: 92; Range: 70-105; Units: MG/DL; Status: F Test: BLOOD UREA NITROGEN; Value: 15; Range: 7-18; Units: MG/DL; Status: F Test: CREATININE FOR GFR; Value: 1.09; Range: 0.70-1.30; Units: MG/DL; Status: F Test: GLOMERULAR FILTRATION RATE; Value: > 60.0; Range: >60; Status: F Test: SODIUM LEVEL; Value: 141; Range: 136-145; Units: MEQ/L; Status: F Test: POTASSIUM SERUM; Value: 4.1; Range: 3.5-5.1; Units: MEQ/L; Status: F Test: CHLORIDE LEVEL; Value: 104; Range: 98-107; Units: MEQ/L; Status: F Test: CARBON DIOXIDE LEVEL; Value: 28; Range: 21-32; Units: MEQ/L; Status: F Test: ANION GAP; Value: 9; Range: 8-16; Units: MEQ/L; Status: F Test: CALCIUM LEVEL; Value: 9.0; Range: 8.5-10.1; Units: MG/DL; Status: F Test Note: ; Units are mL/min/1.73 m2 Chronic Kidney Disease Staging per NKF: Stage I & II GFR >=60 Normal to Mildly Decreased Stage III GFR 30-59 Moderately Decreased Stage IV GFR 15-29 Severely Decreased Stage V GFR <15 Very Little GFR Left ESRD GFR <15 on WATER POLLUTION SPECIALIST Lab Order: CBC with Diff; SPEC'M 08/09/16 21:40 Test: WHITE BLOOD COUNT; Value: 13.8; Range: 4.0-10.0; Abnormal: Above high normal; Units: K/mm3; Status: F Test: RED BLOOD COUNT; Value: 5.38; Range: 4.30-6.10; Units: M/mm3; Status: F Test: HEMOGLOBIN; Value: 16.5; Range: 14.0-18.0; Units: g/dl; Status: F Test: HEMATOCRIT; Value: 47.5; Range: 42.0-52.0; Units: %; Status: F Test: MEAN CORPUSCULAR VOLUME; Value: 88.1; Range: 80.0-96.0; Units: fl; Status: F Test: MEAN CORPUSCULAR HEMOGLOBIN; Value: 30.6; Range: 27.0-33.0; Units: pg; Status: F Test: MEAN CORPUSCULAR HGB CONC; Value: 34.7; Range: 32.0-36.5; Units: g/dl; Status: F Test: RED CELL DISTRIBUTION WIDTH; Value: 13.1; Range: 11.5-14.5; Units: %; Status: F Test: PLATELET COUNT, AUTOMATED; Value: 211; Range: 150-450; Units: k/mm3; Status: F Test: NEUTROPHILS %; Value: 77.0; Range: 36.0-66.0; Abnormal: Above high normal; Units: %; Status: F Test: LYMPH %; Value: 12.8; Range: 24.0-44.0; Abnormal: Below low normal; Units: %; Status: F Test: MONO %; Value: 4.8; Range: 0.0-5.0; Units: %; Status: F Test: EOS %; Value: 2.6; Range: 0.0-3.0; Units: %; Status: F Test: BASO %; Value: 1.6; Range: 0.0-1.0; Abnormal: Above high normal; Units: %; Status: F Test: LARGE UNSTAINED CELL %; Value: 1.2; Range: 0.0-4.0; Units: %; Status: F Test: NEUTROPHILS #; Value: 10.7; Range: 1.8-7.7; Abnormal: Above high normal; Units: K/mm3; Status: F Test: LYMPH #; Value: 1.9; Range: 1.5-4.5; Units: K/mm3; Status: F Test: MONO #; Value: 0.7; Range: 0.0-0.8; Units: K/mm3; Status: F Test: EOS #; Value: 0.4; Range: 0.0-0.50; Units: K/mm3; Status: F Test: BASO #; Value: 0.2; Range: 0.0-0.2; Units: K/mm3; Status: F Test: LARGE UNSTAINED CELL #; Value: 0.2; Range: 0.0-0.4; Units: K/mm3; Status: F Lab Order: Liver Profile; SPEC'M 08/09/16 21:40 Test: AST/SGOT; Value: 19; Range: 15-37; Units: U/L; Status: F Test: ALT/SGPT; Value: 50; Range: 12-78; Units: U/L; Status: F Test: ALKALINE PHOSPHATASE; Value: 106; Range: 45-117; Units: U/L; Status: F Test: BILIRUBIN,TOTAL; Value: 0.4; Range: 0.2-1.0; Units: MG/DL; Status: F Test: BILIRUBIN,DIRECT; Value: 0.1; Range: 0.0-0.2; Units: MG/DL; Status: F Test: TOTAL PROTEIN; Value: 7.1; Range: 6.4-8.2; Units: GM/DL; Status: F Test: ALBUMIN; Value: 4.3; Range: 3.2-5.2; Units: GM/DL; Status: F Test: ALBUMIN/GLOBULIN RATIO; Value: 1.54; Range: 1.00-1.93; Status: F Lab Order: UA; SPEC'M 08/09/16 21:30 Test: APPEARANCE, URINE; Value: CLEAR; Range: CLEAR; Status: F Test: COLOR, URINE; Value: YELLOW; Range: YELLOW; Status: F Test: PH,URINE; Value: 5.0; Range: 5.0-9.0; Units: UNITS; Status: F Test: SPECIFIC GRAVITY URINE AUTO; Value: 1.014; Range: 1.002-1.035; Status: F Test: PROTEIN, URINE AUTO; Value: NEGATIVE; Range: NEGATIVE; Units: mg/dL; Status: F Test: GLUCOSE, URINE (UA) AUTO; Value: NEGATIVE; Range: NEGATIVE; Units: mg/dL; Status: F Test: KETONE, URINE AUTO; Value: NEGATIVE; Range: NEGATIVE; Units: mg/dL; Status: F Test: UROBILINOGEN, URINE AUTO; Value: 0.2; Range: 0.0-2.0; Units: mg/dL; Status: F Test: BILIRUBIN, URINE AUTO; Value: NEGATIVE; Range: NEGATIVE; Status: F Test: NITRITE, URINE AUTO; Value: NEGATIVE; Range: NEGATIVE; Status: F Test: LEUKOCYTE ESTERASE, URINE AUTO; Value: NEGATIVE; Range: NEGATIVE; Status: F Test: BLOOD, URINE BLOOD; Value: NEGATIVE; Range: NEGATIVE; Status: F Test: WBC, URINE AUTO; Value: 0; Range: 0-3; Units: /HPF; Status: F Test: RBC, URINE AUTO; Value: 0; Range: 0-3; Units: /HPF; Status: F Test: BACTERIA, URINE AUTO; Value: NEGATIVE; Range: NEGATIVE; Status: F Test: SQUAMOUS EPITHELIAL CELL UR AU; Value: 0; Range: 0-6; Units: /HPF; Status: F Test: MUCUS, URINE; Value: SMALL; Range: NEGATIVE; Status: F Test: HYALINE CAST, URINE AUTO; Value: 0; Range: 0-1; Units: /LPF; Status: F Radiology Order: CT ABD & PELVIS: IV Contrast Only Test: CT ABD & PELVIS: IV Contrast Only REASON FOR EXAMINATION: Appendicitis; ; CLINICAL HISTORY: Abdominal pain.; TECHNIQUE: Multiple axial, sagittal and coronal CT images were obtained through the abdomen and pelvi; s after administration of intravenous contrast material.; COMMENTS:; Enlarged appendix measuring 1.3 cm. Impacted appendicolith in the base of the appendix. Thickening an; d enhancement of the wall of the appendix with surrounding fat stranding.; Fluid filled small bowels.; The liver is mildly enlarged with decreased attenuation without mass or defect. There is no intra or; extrahepatic biliary ductal dilatation. The spleen is normal. The gallbladder is within normal limits; . The pancreas is of normal contour and attenuation characteristics. There is no evidence of adrenal; mass.; Both kidneys demonstrate prompt and equal nephrograms. The kidneys are normal in size, shape and conf; iguration. There is no evidence of renal or ureteral mass. No renal or ureteral calculi are identifie; d. There is no hydroureter or hydronephrosis.; There is no bowel wall thickening. No evidence for small or large bowel obstruction. There is no evid; ence of abdominal ascites or lymphadenopathy.; There is no evidence of intrinsic or extrinsic bladder mass. There is no pelvic ascites or lymphadeno; eusebia.; Images of the lung bases show no evidence of pleural or parenchymal mass. There are no pleural effusi; ons.; The bony structures are free of lytic or blastic lesions. Multilevel degenerative changes are seen in; volving the thoracolumbar spine. Scattered calcifications are seen involving the aorta and major bran; ches compatible with atherosclerosis.; IMPRESSION:; Acute appendicitis.; No perforation or abscess formation.; Fluid filled small bowels, probably ileus.; Moderate prostatomegaly.; Prostatic calcifications.; Mild diffuse thickening of the bladder.; Thank you for your kind referral of this patient.; ; Outcome: 08/09 22:59 CT Study completed. ms18 08/10 00:57 Decision to Hospitalize by Provider. ar2 02:05 Discharge Assessment: Patient awake, alert and oriented x 3. No cognitive and/or ld5 functional deficits noted. Patient verbalized understanding of disposition instructions. patient administered narcotics - yes. Patient was admitted to the hospital or transferred to another facility. The following High Risk Discharge criteria are identified: None. Admitted to Pediatrics accompanied by tech, family with patient, via stretcher, with chart. Condition: stable. Admission hand-off: Report called to Blanca on peds. 02:07 Patient left the ED. ld5 Signatures: Dispatcher [employer] EDMS Elba Salguero RN RN mcp Zecher, Calvin, RN RN cz Elis Cardenas, Tommy Peres, [facility] ml3 Irene Howard, PEDIATRICIAN ACTIVE PRACTICE PEDIATRICIAN ACTIVE PRACTICE jb5 Sol Rosario Aaron, PA-C PA-C ar2 Rochelle Alvarado,HEALTH INSPECTOR HEALTH INSPECTOR cp1 Yokasta Mckeon RN RN ld5 Missy Carvajal, PEDIATRICIAN ACTIVE PRACTICE PEDIATRICIAN ACTIVE PRACTICE elp Farideh Clifford RN RN ms18 Corrections: (The following items were deleted from the chart) 08/09 22:56 21:52 NS 0.9% 1000 ml IV at bolus in left antecubital ms18 ms18 :56 21:52 morphine 4 mg IVP in left antecubital ms18 ms18 22:57 21:52 Ondansetron 4 mg IVP in left antecubital ms18 ms18 Chart Complete MTDD
--- NOTE | 2016-08-13 10:24 | EDDOCDS ---
Physician Documentation [facility] Name: Matheus Mac Age: 35 yrs Sex: Male : 1980 Arrival Date: 08/09/2016 Time: 20:00 Bed I6 / 28 Private MD: Paul Rojas Disposition: 08/10/16 00:57 Hospitalization ordered by Prasad Guadarrama for Inpatient Admission. Preliminary diagnosis is Acute appendicitis. - Bed requested for M PED. - Status is Inpatient Admission. ld5 - Condition is Stable. - Problem is new. - Symptoms are unchanged. Historical: - Allergies: Codeine Sulfate; - Home Meds: 1. testosterone every 2 weeks 2. telmisartan 40 mg oral tab 1 tab once daily 3. atenolol 25 mg Oral tab 1 tab once daily 4. aspirin 325 mg Oral tab 1 tab once daily - PMHx: Low Testosterone; Hypertension; abnormal heartbeat; - PSHx: Cardiac Ablation; - Social history: Smoking status: Patient states former smoker of tobacco. No barriers to communication noted, The patient speaks fluent Telugu. - Family history: Not pertinent. - : The pt / caregiver states he / she is not on anticoagulants. Home medication list is obtained from the patient. - Exposure Risk Screening:: None identified. Vital Signs: 08/09 20:01 BP 148 / 85; Pulse 80; Resp 18; Temp 99.3(O); Pulse Ox 97% ; Weight 77.11 kg / 170 lbs; elp Height 5 ft. 5 in. (165.10 cm); Pain 6/10; 08/10 00:52 BP 155 / 75; Pulse 60; Resp 16; Temp 98.8(O); Pulse Ox 96% on R/A; Pain 5/10; ld5 02:04 BP 125 / 58; Pulse 65; Resp 16; Temp 98.7(O); Pulse Ox 95% on R/A; ld5 08/09 20:01 Body Mass Index 28.29 (77.11 kg, 165.10 cm) elp MDM: 08/09 21:26 Undress patient appropriately for examination ordered. ar2 21:26 IV Saline Lock ordered. ar2 21:26 NS 0.9% 1000 ml IV at bolus once ordered. ar2 21:26 morphine 4 mg IVP once ordered. ar2 21:26 Ondansetron 4 mg IVP once ordered. ar2 21:27 Basic Metabolic Profile Ordered. EDMS 21:27 CBC with Diff Ordered. EDMS 21:27 Liver Profile Ordered. EDMS 21:27 CT ABD & PELVIS: IV Contrast Only Ordered. EDMS 21:27 NOTHING BY MOUTH+DIET ordered. EDMS 21:29 UA Ordered. EDMS 21:59 Financial registration complete. zo 22:31 CBC with Diff Reviewed. ar2 22:31 Basic Metabolic Profile Reviewed. ar2 22:31 Liver Profile Reviewed. ar2 22:31 UA Reviewed. ar2 23:37 [facility] Payment Agreement was scanned into [employer] and attached to record. zo 08/10 00:44 morphine 4 mg IVP once ordered. ar2 00:53 Piperacillin-Tazobactam 3.375 grams IVPB once over 30 mins; dilute in 50mL of NS or D5W ar2 ordered. 00:56 Metoclopramide 10 mg IV at 40 mg/hr once over 15 mins ordered. ar2 00:57 BED REQUEST+ADM ordered. EDMS 01:17 Admission Orders was scanned into [employer] and attached to record. ml3 09:50 T-Sheet-- Draft Copy was scanned into [employer] and attached to record. gb 09:50 Radiology Report was scanned into [employer] and attached to record. gb Administered Medications: 08/09 21:52 Drug: NS 0.9% 1000 ml [sodium chloride 0.9 % intravenous solution] Route: IV; Rate: ms18 bolus; Site: right antecubital; 08/10 01:27 Follow up: IV Status: Completed infusion; IV Intake: 1000ml ld5 08/09 21:52 Drug: morphine 4 mg [morphine 4 mg/mL intravenous cartridge (1 mL)] Route: IVP; Site: ms18 right antecubital; 21:52 Drug: Ondansetron 4 mg [ondansetron HCl 2 mg/mL intravenous solution (2 mL)] Route: ms18 IVP; Site: right antecubital; 08/10 01:14 Drug: Metoclopramide 10 mg [metoclopramide 5 mg/mL injection solution] Route: IV; Rate: ld5 40 mg/hr; Infused Over: 15 mins; Site: right antecubital; 01:59 Follow up: IV Status: Completed infusion ld5 01:52 Drug: morphine 4 mg [morphine 4 mg/mL intravenous cartridge (1 mL)] Route: IVP; Site: ld5 right antecubital; 01:52 Drug: Piperacillin-Tazobactam 3.375 grams [piperacillin-tazobactam 3.375 gram ld5 intravenous solution] Route: IVPB; Infused Over: 30 mins; Site: right antecubital; 01:58 Follow up: IV Status: Infusion continued upon admit ld5 Signatures: Dispatcher [employer] Elba Hatfield RN RN mcp Elis Cardenas, Reg Reg gb Tommy Goetz, [employer] Operator Unit ml3 Sol Rosario Aaron, PA-C PADerrick ar2 Yokasta Mckeon RN RN ld5 Farideh Clifford RN RN ms18 The chart was reviewed and I authenticate all verbal orders and agree with the evaluation and treatment provided.Attachments: 08/09 23:37 [facility] Payment Agreement zo 08/10 01:17 Admission Orders ml3 09:50 T-Sheet-- Draft Copy gb Chart Complete MTDD
--- NOTE | 2016-08-13 10:24 | EDDOCDS ---
Physician Documentation [facility] Name: Matheus Mac Age: 35 yrs Sex: Male : 1980 Arrival Date: 08/09/2016 Time: 20:00 Bed I6 / 28 Private MD: Paul Rojas Disposition: 08/10/16 00:57 Hospitalization ordered by Prasad Guadarrama for Inpatient Admission. Preliminary diagnosis is Acute appendicitis. - Bed requested for M PED. - Status is Inpatient Admission. ld5 - Condition is Stable. - Problem is new. - Symptoms are unchanged. Historical: - Allergies: Codeine Sulfate; - Home Meds: 1. testosterone every 2 weeks 2. telmisartan 40 mg oral tab 1 tab once daily 3. atenolol 25 mg Oral tab 1 tab once daily 4. aspirin 325 mg Oral tab 1 tab once daily - PMHx: Low Testosterone; Hypertension; abnormal heartbeat; - PSHx: Cardiac Ablation; - Social history: Smoking status: Patient states former smoker of tobacco. No barriers to communication noted, The patient speaks fluent Slovenian. - Family history: Not pertinent. - : The pt / caregiver states he / she is not on anticoagulants. Home medication list is obtained from the patient. - Exposure Risk Screening:: None identified. Vital Signs: 08/09 20:01 BP 148 / 85; Pulse 80; Resp 18; Temp 99.3(O); Pulse Ox 97% ; Weight 77.11 kg / 170 lbs; elp Height 5 ft. 5 in. (165.10 cm); Pain 6/10; 08/10 00:52 BP 155 / 75; Pulse 60; Resp 16; Temp 98.8(O); Pulse Ox 96% on R/A; Pain 5/10; ld5 02:04 BP 125 / 58; Pulse 65; Resp 16; Temp 98.7(O); Pulse Ox 95% on R/A; ld5 08/09 20:01 Body Mass Index 28.29 (77.11 kg, 165.10 cm) elp MDM: 08/09 21:26 Undress patient appropriately for examination ordered. ar2 21:26 IV Saline Lock ordered. ar2 21:26 NS 0.9% 1000 ml IV at bolus once ordered. ar2 21:26 morphine 4 mg IVP once ordered. ar2 21:26 Ondansetron 4 mg IVP once ordered. ar2 21:27 Basic Metabolic Profile Ordered. EDMS 21:27 CBC with Diff Ordered. EDMS 21:27 Liver Profile Ordered. EDMS 21:27 CT ABD & PELVIS: IV Contrast Only Ordered. EDMS 21:27 NOTHING BY MOUTH+DIET ordered. EDMS 21:29 UA Ordered. EDMS 21:59 Financial registration complete. zo 22:31 CBC with Diff Reviewed. ar2 22:31 Basic Metabolic Profile Reviewed. ar2 22:31 Liver Profile Reviewed. ar2 22:31 UA Reviewed. ar2 23:37 [facility] Payment Agreement was scanned into [employer] and attached to record. zo 08/10 00:44 morphine 4 mg IVP once ordered. ar2 00:53 Piperacillin-Tazobactam 3.375 grams IVPB once over 30 mins; dilute in 50mL of NS or D5W ar2 ordered. 00:56 Metoclopramide 10 mg IV at 40 mg/hr once over 15 mins ordered. ar2 00:57 BED REQUEST+ADM ordered. EDMS 01:17 Admission Orders was scanned into [employer] and attached to record. ml3 09:50 T-Sheet-- Draft Copy was scanned into [employer] and attached to record. gb 09:50 Radiology Report was scanned into [employer] and attached to record. gb Administered Medications: 08/09 21:52 Drug: NS 0.9% 1000 ml [sodium chloride 0.9 % intravenous solution] Route: IV; Rate: ms18 bolus; Site: right antecubital; 08/10 01:27 Follow up: IV Status: Completed infusion; IV Intake: 1000ml ld5 08/09 21:52 Drug: morphine 4 mg [morphine 4 mg/mL intravenous cartridge (1 mL)] Route: IVP; Site: ms18 right antecubital; 21:52 Drug: Ondansetron 4 mg [ondansetron HCl 2 mg/mL intravenous solution (2 mL)] Route: ms18 IVP; Site: right antecubital; 08/10 01:14 Drug: Metoclopramide 10 mg [metoclopramide 5 mg/mL injection solution] Route: IV; Rate: ld5 40 mg/hr; Infused Over: 15 mins; Site: right antecubital; 01:59 Follow up: IV Status: Completed infusion ld5 01:52 Drug: morphine 4 mg [morphine 4 mg/mL intravenous cartridge (1 mL)] Route: IVP; Site: ld5 right antecubital; 01:52 Drug: Piperacillin-Tazobactam 3.375 grams [piperacillin-tazobactam 3.375 gram ld5 intravenous solution] Route: IVPB; Infused Over: 30 mins; Site: right antecubital; 01:58 Follow up: IV Status: Infusion continued upon admit ld5 Signatures: Dispatcher [employer] Elba Hatfield RN RN mcp Elis Cardenas, Reg Reg gb Tommy Goetz, [place] Attorney Unit ml3 Sol Rosario Aaron, PA-C PADerrick ar2 Yokasta Mckeon RN RN ld5 Farideh Clifford RN RN ms18 The chart was reviewed and I authenticate all verbal orders and agree with the evaluation and treatment provided.Attachments: 08/09 23:37 [facility] Payment Agreement zo 08/10 01:17 Admission Orders ml3 09:50 T-Sheet-- Draft Copy gb Chart Complete MTDD
== END 2016-08-10 17:40 | disposition home or self-care (01) ==
LOC: M ED 20:00 → M OROP 08-10 01:18 → UNDOADMIN 08-10 01:18 → M ED INP 08-10 01:18 → M PED 08-10 02:17 → M ED INP 08-10 02:17 → UNDODISIN 08-10 17:40 → M OROP 08-10 17:40
PROVIDERS: ATTEND Surgery
DX: K35.80 Unspecified acute appendicitis (principal); E29.1 Testicular hypofunction; I10 Essential (primary) hypertension; I49.9 Cardiac arrhythmia, unspecified; Z88.5 Allergy status to narcotic agent; Z79.899 Other long term (current) drug therapy; Z79.82 Long term (current) use of aspirin; Z86.79 Personal history of other diseases of the circulatory system
CPT/HCPCS: 36415; 44970; 74177; 80048; 80076; 81001; 85025; 88304; 96361; 96365; 96375; 96376; 99285; J1885; J2250; J2405; J2543; J2710; J2765; J3010; Q9967

== ENCOUNTER → 2017-03-15 | Outpatient (CLI) | payer OTHER ==
[~2017-03-15] MED LIST: ASPI325T PO; ATEN25TA PO; NORC1TAB4 PO; TELM1TAB PO; TEST200I14 IM
[2017-03-15 10:52] LABS: MEAN CORPUSCULAR HEMOGLOBIN 31.6 pg (27.0-33.0); MEAN CORPUSCULAR HGB CONC 34.4 g/dl (32.0-36.5); MEAN CORPUSCULAR VOLUME 91.7 fl (80.0-96.0); RED CELL DISTRIBUTION WIDTH 13.2 % (11.5-14.5); WHITE BLOOD COUNT 5.8 K/mm3 (4.0-10.0)
[2017-03-15 11:16] LABS: ALBUMIN 3.9 GM/DL (3.2-5.2); ALKALINE PHOSPHATASE 83 U/L (45-117); ALT/SGPT 47 U/L (12-78); ANION GAP 7 MEQ/L (8-16); AST/SGOT 16 U/L (15-37); BILIRUBIN,TOTAL 0.3 MG/DL (0.2-1.0); BLOOD UREA NITROGEN 11 MG/DL (7-18); CALCIUM LEVEL 9.2 MG/DL (8.5-10.1); CARBON DIOXIDE LEVEL 29 MEQ/L (21-32); CHLORIDE LEVEL 106 MEQ/L (98-107); CREATININE FOR GFR 1.01 MG/DL (0.70-1.30); GLOMERULAR FILTRATION RATE > 60.0 (>60); GLUCOSE, FASTING 135 MG/DL (70-105); POTASSIUM SERUM 4.1 MEQ/L (3.5-5.1); SODIUM LEVEL 142 MEQ/L (136-145); TOTAL PROTEIN 6.5 GM/DL (6.4-8.2)
== END ==
LOC: M LAB 10:22
PROVIDERS: ATTEND Urology
DX: E29.1 Testicular hypofunction (principal)
CPT/HCPCS: 36415; 80053; 84403; 85027; G0103

== ENCOUNTER → 2017-04-02 | Outpatient (REF) | payer OTHER | LOC: M SFHCADAM 08:27 | PROVIDERS: ATTEND Urology | DX: E29.1 Testicular hypofunction (principal) ==

== ENCOUNTER → 2017-04-24 | Outpatient (REF) | payer OTHER | LOC: M LABDRWAD 12:12 | PROVIDERS: ATTEND Urology | DX: E29.1 Testicular hypofunction (principal) ==

== ENCOUNTER → 2017-09-23 | Outpatient (REF) | payer OTHER ==
[2017-09-23 18:43] LABS: BASO # 0.1 10^3/uL (0.0-0.2); EOS # 0.3 10^3/uL (0.0-0.50); EOS % 4.7 % (0.0-3.0); HEMATOCRIT 41.9 % (42.0-52.0); HEMOGLOBIN 14.4 g/dl (14.0-18.0); IMMATURE GRANULOCYTE % 0.4 % (0-3.0); LYMPH # 1.5 10^3/uL (1.5-4.5); LYMPH % 20.1 % (24.0-44.0); MEAN CORPUSCULAR HEMOGLOBIN 31.5 pg (27.0-33.0); MEAN CORPUSCULAR HGB CONC 34.4 g/dl (32.0-36.5); MEAN CORPUSCULAR VOLUME 91.7 fl (80.0-96.0); MONO # 0.6 10^3/uL (0.0-0.8); MONO % 8.6 % (0.0-5.0); NEUTROPHILS # 4.7 10^3/uL (1.8-7.7); NEUTROPHILS % 65.2 % (36.0-66.0); PLATELET COUNT, AUTOMATED 300 10^3/uL (150-450); RED BLOOD COUNT 4.57 10^6/uL (4.30-6.10); RED CELL DISTRIBUTION WIDTH 12.1 % (11.5-14.5); WHITE BLOOD COUNT 7.3 10^3/uL (4.0-10.0)
== END ==
LOC: M LABDRWAD 18:23
DX: I48.91 Unspecified atrial fibrillation (principal)

== ENCOUNTER → 2017-10-27 | Outpatient (CLI) | payer OTHER ==
[2017-10-27 12:54] LABS: TESTOSTERONE 201 NG/DL (241-827)
[2017-10-27 12:54] LABS: LUTEINIZING HORMONE 4.1 mIU/mL (1.5-9.3); PROLACTIN 8.8 NG/ML (2.1-17.7)
[2017-10-27 12:55] LABS: FOLLICLE STIMULATING HORMONE 4.3 mIU/mL (1.4-18.1)
[2017-10-30 10:15] LABS: TESTOSTERONE %FREE+WEAKLY BOUN 26.2 % (9.0-46.0); TESTOSTERONE FREE+WEAKLY BOUND 53.7 ng/dL (40.0-250.0); TESTOSTERONE TOTAL 205 ng/dL (264-916)
== END ==
LOC: M ADAMS 08:33
DX: E29.1 Testicular hypofunction (principal)
CPT/HCPCS: 83001

== ENCOUNTER → 2017-11-27 | Outpatient (REF) | payer SELFPAY ==
[2017-12-02 10:13] LABS: TESTOSTERONE %FREE+WEAKLY BOUN 38.2 % (9.0-46.0); TESTOSTERONE FREE+WEAKLY BOUND 99.7 ng/dL (40.0-250.0); TESTOSTERONE TOTAL 261 ng/dL (264-916)
== END ==
LOC: M LABDRWAD 12:10
DX: E29.1 Testicular hypofunction (principal)

== ENCOUNTER → 2018-04-15 | Outpatient (CLI) | payer OTHER ==
[2018-04-15 15:05] LABS: TESTOSTERONE 173 NG/DL (241-827)
[2018-04-18 14:57] LABS: TESTOSTERONE %FREE+WEAKLY BOUN 26.2 % (9.0-46.0); TESTOSTERONE FREE+WEAKLY BOUND 41.9 ng/dL (40.0-250.0); TESTOSTERONE TOTAL 160 ng/dL (264-916)
== END ==
LOC: M LABDRWAD 10:28
DX: E29.1 Testicular hypofunction (principal)
CPT/HCPCS: 84403

== ENCOUNTER → 2019-04-09 | Outpatient (CLI) | payer OTHER ==
[~2019-04-09] MED LIST changes: +ASPI-1 PO; -ASPI325T PO; -NORC1TAB4 PO; +NORC1TAB7 PO
[2019-04-13 14:07] LABS: TESTOSTERONE %FREE+WEAKLY BOUN 28.2 % (9.0-46.0); TESTOSTERONE FREE+WEAKLY BOUND 74.7 ng/dL (40.0-250.0); TESTOSTERONE TOTAL 265 ng/dL (264-916)
== END ==
LOC: M LAB 07:14
PROVIDERS: ATTEND Nurse Practitioner Family
DX: E29.1 Testicular hypofunction (principal)

== ENCOUNTER 2021-03-23 19:37 | Emergency (ER) | payer OTHER ==
[~2021-03-23] VITALS: Ht 165.1 cm; Wt 82.0 kg
[~2021-03-23 19:37] MED LIST changes: -TELM1TAB PO; +TELM1TAB35 PO
[2021-03-23 20:50] LABS: BASO # 0.1 10^3/uL (0.0-0.2); BASO % 0.9 % (0.0-1.0); EOS # 0.4 10^3/uL (0.0-0.5); EOS % 4.4 % (0.0-3.0); HEMATOCRIT 44.3 % (42.0-52.0); LYMPH # 2.3 10^3/uL (1.5-5.0); LYMPH % 28.5 % (24.0-44.0); MEAN CORPUSCULAR HEMOGLOBIN 30.7 pg (27.0-33.0); MEAN CORPUSCULAR HGB CONC 33.9 g/dl (32.0-36.5); MEAN CORPUSCULAR VOLUME 90.8 fl (80.0-96.0); MONO # 0.8 10^3/uL (0.0-0.8); MONO % 9.4 % (2.0-8.0); NEUTROPHILS # 4.5 10^3/uL (1.5-8.5); NEUTROPHILS % 56.5 % (36.0-66.0); PLATELET COUNT, AUTOMATED 245 10^3/uL (150-450); RED BLOOD COUNT 4.88 10^6/uL (4.30-6.10)
[2021-03-23 21:09] LABS: INR 0.93; PROTHROMBIN TIME 12.9 SECONDS (12.7-14.5)
--- NOTE | 2021-03-23 21:20 | REPVR ---
PROCEDURE INFORMATION: Exam: XR Chest Exam date and time: 03/23/2021 9:03 PM Age: 40 years old Clinical indication: Cough; Additional info: Chest pain TECHNIQUE: Imaging protocol: XR of the chest. Views: 1 view. COMPARISON: CR Chest, 1 view 11/26/2015 10:16 PM FINDINGS: Lungs: Unremarkable. No consolidation. Pleural spaces: Unremarkable. No pleural effusion. No pneumothorax. Heart/Mediastinum: Unremarkable. No cardiomegaly. Bones/joints: Unremarkable. IMPRESSION: No acute findings. Electronically signed by: Chandler Garcia On 03/23/2021 21:19:35 PM
[2021-03-23 21:22] LABS: ALT/SGPT 80 U/L (12-78); BILIRUBIN,DIRECT < 0.1 MG/DL (0.0-0.2); BILIRUBIN,TOTAL 0.3 MG/DL (0.2-1.0); BLOOD UREA NITROGEN 17 MG/DL (7-18); CALCIUM LEVEL 9.3 MG/DL (8.5-10.1); CARBON DIOXIDE LEVEL 27 MEQ/L (21-32); CHLORIDE LEVEL 108 MEQ/L (98-107); CK-MB VALUE MASS < 1.0 NG/ML (<3.6); CPK CREATINE PHOSPHOKINASE 80 U/L (39-308); CREATININE FOR GFR 0.93 MG/DL (0.70-1.30); GLOMERULAR FILTRATION RATE > 60.0 (>60); GLUCOSE, FASTING 99 MG/DL (70-100); LIPASE 148 U/L (73-393); MAGNESIUM LEVEL 2.2 MG/DL (1.8-2.4); MB/CK RELATIVE INDEX 1.25 (< OR =4); POTASSIUM SERUM 4.5 MEQ/L (3.5-5.1); SODIUM LEVEL 142 MEQ/L (136-145); TROPONIN I < 0.02 NG/ML (< 0.10)
[2021-03-23 22:00] VITALS: BP 136/84
--- NOTE | 2021-03-25 08:47 | ECGEPIP ---
[facility] - ED Test Date: 2021-03-23 Pat Name: COURTNEY FLANAGAN Department: Room: - Gender: Male Kerrick Kleaner Operator: FELY : 1980 Requested By: SOFIA Pierre Order Number: [id number] Reading MD: Taylor Mancuso Measurements Intervals [place] Rate: 69 P: 39 MS: 132 QRS: 27 QRSD: 74 T: 24 QT: 376 QTc: 402 Interpretive Statements Sinus rhythm with premature supraventricular complexes NSTTW abnormalities similar 11/27/15 Electronically Signed on 03-25-2021 8:46:59 EDT by Taylor Mancuso
== END 2021-03-23 22:17 | disposition home or self-care (01) ==
LOC: M ED 19:37
DX: I49.1 Atrial premature depolarization (principal); R00.2 Palpitations; I48.91 Unspecified atrial fibrillation; I10 Essential (primary) hypertension; Z79.82 Long term (current) use of aspirin; Z79.899 Other long term (current) drug therapy; Z88.5 Allergy status to narcotic agent

== ENCOUNTER → 2021-07-06 | Outpatient (REF) | payer OTHER ==
[2021-07-06 13:04] LABS: AMORPHOUS SEDIMENT SMALL (NEGATIVE); APPEARANCE, URINE TURBID (CLEAR); BACTERIA, URINE AUTO NEGATIVE (NEGATIVE); BILIRUBIN, URINE AUTO NEGATIVE (NEGATIVE); BLOOD, URINE BLOOD NEGATIVE (NEGATIVE); COLOR, URINE AMBER (YELLOW); GLUCOSE, URINE (UA) AUTO NEGATIVE (NEGATIVE); KETONE, URINE AUTO NEGATIVE (NEGATIVE); LEUKOCYTE ESTERASE, URINE AUTO NEGATIVE (NEGATIVE); MUCUS, URINE SMALL (NEGATIVE); NITRITE, URINE AUTO NEGATIVE (NEGATIVE); PROTEIN, URINE AUTO NEGATIVE (NEGATIVE); RBC, URINE AUTO 1 /HPF (0-3); SPECIFIC GRAVITY URINE AUTO 1.027 (1.002-1.035); SQUAMOUS EPITHELIAL CELL UR AU 0 /HPF (0-6); UROBILINOGEN, URINE AUTO 0.2 mg/dL (0.0-2.0); WBC, URINE AUTO 0 /HPF (0-3)
== END ==
LOC: M SFHCADAM 12:24
PROVIDERS: ATTEND Physician Assistant Medical
DX: I47.1 Supraventricular tachycardia (principal); N52.9 Male erectile dysfunction, unspecified; I10 Essential (primary) hypertension

== ENCOUNTER 2022-11-29 15:04 | Emergency (ER) | payer OTHER ==
[~2022-11-29] VITALS: Ht 165.1 cm; Wt 79.9 kg
[2022-11-29 16:30] LABS: BASO # 0.1 10^3/uL (0.0-0.2); BASO % 1.3 % (0.0-1.0); EOS # 0.4 10^3/uL (0.0-0.5); EOS % 5.8 % (0.0-3.0); HEMATOCRIT 39.9 % (42.0-52.0); HEMOGLOBIN 13.6 g/dl (13.5-17.5); MEAN CORPUSCULAR HEMOGLOBIN 31.3 pg (27.0-33.0); MEAN CORPUSCULAR HGB CONC 34.1 g/dl (32.0-36.5); MEAN CORPUSCULAR VOLUME 91.7 fl (80.0-96.0); MONO # 0.6 10^3/uL (0.0-0.8); MONO % 8.8 % (2.0-8.0); NEUTROPHILS # 3.8 10^3/uL (1.5-8.5); NEUTROPHILS % 54.8 % (36.0-66.0); PLATELET COUNT, AUTOMATED 241 10^3/uL (150-450); RED BLOOD COUNT 4.35 10^6/uL (4.30-6.10); WHITE BLOOD COUNT 6.9 10^3/uL (4.0-10.0)
[2022-11-29 16:40] LABS: INR 0.91; PROTHROMBIN TIME 12.5 SECONDS (12.5-14.5)
[2022-11-29 16:41] LABS: PARTIAL THROMBOPLASTIN TIME 29.6 SECONDS (24.8-34.2)
[2022-11-29 16:58] LABS: BLOOD UREA NITROGEN 21 MG/DL (9-23); CALCIUM LEVEL 9.3 MG/DL (8.5-10.1); CARBON DIOXIDE LEVEL 28 MMOL/L (20-31); CHLORIDE LEVEL 104 MMOL/L (98-107); CK-MB VALUE MASS < 1.0 NG/ML (<3.6); CPK CREATINE PHOSPHOKINASE 160 U/L (46-171); CREATININE FOR GFR 0.96 MG/DL (0.70-1.30); GLOMERULAR FILTRATION RATE > 60.0 (>60); GLUCOSE, FASTING 87 MG/DL (60-100); MB/CK RELATIVE INDEX 0.62 (< OR =4); POTASSIUM SERUM 4.5 MMOL/L (3.5-5.1); SODIUM LEVEL 140 MMOL/L (136-145)
[2022-11-29 17:00] LABS: FREE T4 0.99 NG/DL (0.89-1.76); THYROID STIMULATING HORMONE 2.076 uIU/ML (0.55-4.78)
[2022-11-29 17:47] VITALS: BP 125/83
== END 2022-11-29 17:53 | disposition home or self-care (01) ==
LOC: M ED 15:04
DX: R07.89 Other chest pain (principal); I10 Essential (primary) hypertension; Z88.5 Allergy status to narcotic agent; Z79.899 Other long term (current) drug therapy

== ENCOUNTER → 2023-07-11 | Outpatient (CLI) | payer OTHER ==
[2023-07-11 17:43] LABS: BASO # 0.1 10^3/uL (0.0-0.2); EOS # 0.3 10^3/uL (0.0-0.5); EOS % 4.2 % (0.0-3.0); HEMATOCRIT 41.8 % (42.0-52.0); HEMOGLOBIN 14.2 g/dl (13.5-17.5); LYMPH % 28.2 % (24.0-44.0); MEAN CORPUSCULAR HEMOGLOBIN 31.2 pg (27.0-33.0); MEAN CORPUSCULAR VOLUME 91.9 fl (80.0-96.0); MONO # 0.6 10^3/uL (0.0-0.8); MONO % 8.8 % (2.0-8.0); NEUTROPHILS # 4.1 10^3/uL (1.5-8.5); NEUTROPHILS % 57.5 % (36.0-66.0); PLATELET COUNT, AUTOMATED 224 10^3/uL (150-450); RED BLOOD COUNT 4.55 10^6/uL (4.30-6.10); WHITE BLOOD COUNT 7.2 10^3/uL (4.0-10.0)
[2023-07-11 18:02] LABS: ALBUMIN 4.1 G/DL (3.2-5.2); CARBON DIOXIDE LEVEL 30 MMOL/L (20-31); CHLORIDE LEVEL 102 MMOL/L (98-107); POTASSIUM SERUM 4.4 MMOL/L (3.5-5.1); SODIUM LEVEL 139 MMOL/L (136-145)
[2023-07-11 18:15] LABS: ALKALINE PHOSPHATASE 99 U/L (46-116); ALT/SGPT 42 U/L (7.0-40); AST/SGOT 21 U/L (<34); BILIRUBIN,TOTAL 0.5 MG/DL (0.3-1.2); BLOOD UREA NITROGEN 20 MG/DL (9-23); CALCIUM LEVEL 9.4 MG/DL (8.5-10.1); CHOLESTEROL LEVEL 166 MG/DL (<200); CREATININE FOR GFR 0.97 MG/DL (0.70-1.30); GLOMERULAR FILTRATION RATE > 60.0 (>60); GLUCOSE, FASTING 85 MG/DL (60-100); TOTAL PROTEIN 6.8 G/DL (5.7-8.2); TRIGLYCERIDES LEVEL 134 MG/DL (<150)
[2023-07-11 18:27] LABS: CHOLESTEROL RISK RATIO 4.62 (<5); HDL CHOLESTEROL 35.9 MG/DL (>40); LDL CHOLESTEROL 103.3 MG/DL (<100); NON-HDL-C 130.1 MG/DL
== END ==
LOC: M LAB 16:48
PROVIDERS: ATTEND Physician Assistant Medical
DX: Z00.00 Encounter for general adult medical examination without abnormal findings (principal); I47.10 Supraventricular tachycardia, unspecified; R00.2 Palpitations; N52.9 Male erectile dysfunction, unspecified; I10 Essential (primary) hypertension